=== PATIENT | female | born 1965 | race African-American/Black ===

== ENCOUNTER 2017-06-19 16:09 | Emergency (ER) | payer MEDICAID ==
[~2017-06-19] VITALS: Ht 172.7 cm; Wt 63.5 kg
[2017-06-19 16:18] VITALS: BP 128/62
== END 2017-06-19 21:30 | disposition left against medical advice (07) ==
LOC: ER 16:37
DX: R09.81 Nasal congestion (principal)
CPT/HCPCS: 99281